=== PATIENT | male | born 1975 | race Caucasian/White ===

== ENCOUNTER 2017-01-10 14:17 | Emergency (ER) | payer OTHER ==
--- NOTE | 2017-01-10 15:32 | ED UPPER/LOWER EXTREMITY COMPL ---
History of Present Illness General Chief Complaint: Hand or Wrist Injury Stated Complaint: RT FINGER INFECTION Source: patient Exam Limitations: no limitations Vital Signs & Intake/Output Vital Signs & Intake/Output Vital Signs Date Time Temp Pulse Resp B/P B/P Pulse O2 O2 Flow FiO2 Mean Ox Delivery Rate 01/10 1422 98.0 71 22 98 Allergies Coded Allergies: NO KNOWN ALLERGIES (01/10/17) Reconcile Medications Cephalexin (Keflex) 500 MG CAPSULE 1 CAP PO BID CELLULITIS Sulfamethoxazole/Trimethoprim (Bactrim Ds Tablet) 800 MG-160 MG TABLET 1 TAB PO BID CELLULITIS Triage Note: PER PT INFECTION TO RT INDEX FINGER. NOTICED ON FRIDAY, APPEARS SIMILIAR TO [facility]ANYCHEA Triage Nurses Notes Reviewed? yes Onset: Gradual Duration: constant Timing: recent history Severity: moderate Severity Numbers: 5 HPI: Patient is a 41-year-old male with an unremarkable past medical history of since emergency room with a 2 day history of gradual onset of distal second digit index finger redness pain swelling. Patient states that yesterday he was soaking it in peroxide where he squeezed the region where he noticed mixtures of purulence and blood. Denies any mechanism of injury. Positive for tactile fevers Past History Travel History Traveled to [place] past 21 day No Medical History Any Pertinent Medical History? none Neurological: NONE EENT: NONE Cardiovascular: NONE Respiratory: NONE Gastrointestinal: NONE Hepatic: NONE Renal: NONE Musculoskeletal: NONE Psychiatric: NONE Endocrine: NONE Surgical History Surgical History: non-contributory Psychosocial History What is your primary language Guinean Tobacco Use: Never used Family History Hx Contributory? No Review of Systems Review of Systems Constitutional: Reports: no symptoms. EENTM: Reports: no symptoms. Respiratory: Reports: no symptoms. Cardiovascular: Reports: no symptoms. Gastrointestinal/Abdominal: Reports: no symptoms. Genitourinary: Reports: no symptoms. Musculoskeletal: Reports: see HPI, joint pain, joint swelling. Skin: Reports: see HPI, erythema. Neurological/Psychological: Reports: no symptoms. Hematologic/Endocrine: Reports: see HPI, bleeding. Immunological: Reports: no symptoms. All Other Systems: Reviewed and Negative Physical Exam Physical Exam General Appearance: no apparent distress Neurologic/Tendon: normal sensation, normal motor functions, normal tendon functions, responds to pain, no evidence tendon injury, no pulse deficit Skin: intact Comments: Well-developed well-nourished no apparent distress. HEENT: Atraumatic, extraocular motion intact Neck: Supple, no lymphadenopathy Back: Nontender Respiratory: No respiratory distressn Neuro: Alert and oriented x3 Psych: Mood affect normal, normal memory normal judgment. Diagram Hands Back 1) Noted circumferential erythema warmth and swelling. No fluctuance no induration noted no active discharge full active range of motion of flexion and extension Progress Differential Diagnosis: arterial insufficiency, compartment syndrome, contusion, dislocation, DVT, fracture, gout, septic arthritis, sprain, tendon injury, PARONYCHIA, ABSCESS, CELLULITIS, TENOSYNOVITIS, Plan of Care: Current Medications Sig/Lonnie Start time Last Medication Dose Stop Time Status Admin Lidocaine 20 ML ONCE ONE 01/10 1545 UNVr (Lidocaine 1%) 01/10 1546 Incision was performed with no purulent discharge and no concerns at this time of abscess or paronychia. Patient does have concerning symptoms of cellulitis of the distal right index finger. Patient was strongly advised to return to emergency room and will be prescribed Keflex and Bactrim (KELBY HARRIS) Departure Departure Disposition: HOME OR SELF CARE Condition: Stable Clinical Impression Primary Impression: Cellulitis of right index finger Referrals: PATIENT HAS NO PRIMARY CARE DR (PCP/Family) Additional Instructions: As discussed begin the prescription of Keflex and Bactrim as directed for the full course. Prescriptions waiting at the [facility] pharmacy. If symptoms worsen or if YOU develop a new concerning symptom return to emergency room immediately. Return to the emergency room in 2 days for wound recheck. Departure Forms: Customer Survey General Discharge Information Prescriptions: Current Visit Scripts Cephalexin (Keflex) 1 CAP PO BID #20 CAP Sulfamethoxazole/Trimethoprim (Bactrim Ds Tablet) 1 TAB PO BID #20 TAB Procedures Incision and Drainage Site: RIGHT INDEX FINGER Blade Size: 11 I & D Procedure: Yes: betadine prep, sterile drapes applied, sterile dressing applied. No: wick placed. Progress: Using sterile technique and Betadine I used 1% lidocaine 3 mL to the medial aspect of patient's distal phalanges of index finger second digit. Using 11 blade scalpel I placed a 3 mm incision which no purulent discharge occurred no culture was obtained bandage was applied. Patient tolerated well.
[2017-01-10 15:52] VITALS: BP 125/76
[2017-01-10] MEDS ORDERED: BACTRIM DS TAB1 EACH PO (15:52)
[2017-01-10] MEDS ORDERED: KEFLEX500 M1 PO (15:52)
== END 2017-01-10 16:20 ==
LOC: ERH 14:17
DX: L03.011 Cellulitis of right finger (principal)

== ENCOUNTER 2017-01-12 12:58 | Emergency (ER) | payer OTHER ==
[~2017-01-12] VITALS: Ht 170.2 cm; Wt 88.5 kg
[~2017-01-12 12:58] MED LIST: BACTRIM DS TAB1 EACH PO; KEFLEX500 M1 PO
[2017-01-12 13:06] VITALS: BP 132/77
--- NOTE | 2017-01-12 13:21 | ED UPPER/LOWER EXTREMITY COMPL ---
History of Present Illness General Chief Complaint: Suture Removal/Wound Recheck Stated Complaint: WOUND RE-CHECK Source: patient, old records Exam Limitations: no limitations Vital Signs & Intake/Output Vital Signs & Intake/Output Vital Signs Date Time Temp Pulse Resp B/P B/P Pulse O2 O2 Flow FiO2 Mean Ox Delivery Rate 01/12 1306 97.4 84 16 132/77 97 Room Air Allergies Coded Allergies: NO KNOWN ALLERGIES (01/10/17) Reconcile Medications Cephalexin (Keflex) 500 MG CAPSULE 1 CAP PO BID CELLULITIS Sulfamethoxazole/Trimethoprim (Bactrim Ds Tablet) 800 MG-160 MG TABLET 1 TAB PO BID CELLULITIS Triage Note: 41 Y/0 MALE RETURNS FOR RE EVAL/WOUND CHECK OF R 1ST FINGER; STATES "THEY TRIED TO DRAIN IT BUT NOTHING CAME OUT". STATES FINGER IS "MORE RED BUT LESS SWOLLEN". DENIES FEVERS. CURRENTLY ON ANTIBIOTICS. Triage Nurses Notes Reviewed? yes Onset: Gradual Duration: better Timing: recent history Severity: mild Severity Numbers: 3 HPI: Patient is a 41-year-old male who presents emergency room with request of cellulitis recheck of his right index finger second digit of his hand in which she was evaluated by me 2 days ago which she's had a four-day history of symptoms. Patient had an incision and drainage performed with no purulence noted. Patient was prescribed Keflex and Bactrim for his symptoms which he has been compliant with. Patient states that his symptoms of redness swelling and pain have improved. Denies any fevers patient otherwise is without complaints. Patient has still been soaking his finger with peroxide. Denies any discharge (KELBY HARRIS) Past History Travel History Traveled to [place] past 21 day No Medical History Any Pertinent Medical History? none Neurological: NONE EENT: NONE Cardiovascular: NONE Respiratory: NONE Gastrointestinal: NONE Hepatic: NONE Renal: NONE Musculoskeletal: NONE Psychiatric: NONE Endocrine: NONE Surgical History Surgical History: non-contributory Psychosocial History What is your primary language Panamanian Tobacco Use: Never used Family History Hx Contributory? No (KELBY HARRIS) Review of Systems Review of Systems Constitutional: Reports: no symptoms. EENTM: Reports: no symptoms. Respiratory: Reports: no symptoms. Cardiovascular: Reports: no symptoms. Gastrointestinal/Abdominal: Reports: no symptoms. Genitourinary: Reports: no symptoms. Musculoskeletal: Reports: see HPI. Skin: Reports: see HPI, erythema. Neurological/Psychological: Reports: no symptoms. Hematologic/Endocrine: Reports: no symptoms. Immunological: Reports: no symptoms. All Other Systems: Reviewed and Negative (KELBY HARRIS) Physical Exam Physical Exam General Appearance: no apparent distress, alert, comfortable Neurologic/Tendon: normal sensation, normal motor functions, normal tendon functions, responds to pain, no evidence tendon injury, no pulse deficit Skin: intact Comments: Well-developed well-nourished no apparent distress. HEENT: Atraumatic, extraocular motion intact Neck: Supple, no lymphadenopathy Back: Nontender Respiratory: No respiratory distress Neuro: Alert and oriented x3 Psych: Mood affect normal, normal memory normal judgment. Diagram Hands Back 1) Noted mild erythema full active range of motion noted with flexion and extension No active discharge sensation intact mild swelling (KELBY HARRIS) Progress Differential Diagnosis: arterial insufficiency, cellulitis, CHF, compartment syndrome, contusion, dislocation, DVT, fracture, gout, septic arthritis, sprain Plan of Care: On examination patient has improved of his cellulitis. Patient was advised to discontinue using peroxide and was strongly advised to complete the full course of his antibiotic. Patient was given primary care establishment through [facility] and was strongly advised to follow-up. Patient was afebrile and has no concerns of septic joint has full active range of motion (KELBY HARRIS) Departure Departure Disposition: HOME OR SELF CARE Condition: Stable Clinical Impression Primary Impression: Cellulitis of right finger Referrals: PATIENT HAS NO PRIMARY CARE DR (PCP/Family) Additional Instructions: As discussed continue to apply warm compresses to the area. Continue previously prescribed antibiotics for the full course. If symptoms worsen or if YOU develop a new concerning symptom return to emergency room immediately. Please follow up and establish [facility] for a primary care doctor's appointment next week. Departure Forms: Customer Survey General Discharge Information (KELBY HARRIS) PA/FRONTEND ENGINEER Co-Sign Statement Statement: ED Attending supervision documentation- [] I saw and evaluated the patient. I have also reviewed all the pertinent lab results and diagnostic results. I agree with the findings and the plan of care as documented in the PA's/FRONTEND ENGINEER's documentation. [X] I have reviewed the ED Record and agree with the PA's/FRONTEND ENGINEER's documentation. [] Additions or exceptions (if any) to the PAs/FRONTEND ENGINEER's note and plan are summarized below: [] (DANNA ESCAMILLA,GAB Freed)
== END 2017-01-12 13:33 ==
LOC: ERH 12:58
DX: Z48.01 Encounter for change or removal of surgical wound dressing (principal)
CPT/HCPCS: 99281